=== PATIENT | female | born 1940 | race Caucasian/White ===

== ENCOUNTER 2018-01-23 08:54 | Day surgery (SDC) | payer MEDICARE, OTHER, SELFPAY ==
[2018-01-23] VITALS (7 sets, daily range): BP systolic 139–153; BP diastolic 61–83; PULSE 56–65; RESP 16–17; TEMP 36.2–37; O2SAT 92–100; BMI 28.8
--- NOTE | 2018-01-23 | IMM_PTH ---
PATIENT: KEE KIMBALL LOC: [facility] – [place] U#:[id number] AGE/SX: 77/F ROOM: RE01/23/[address]: Dr. Darius Jon MD : 1940 BED: DIS: 01/23/2018 SPEC #: [id number] RECD: 01/24/18 11:19 STATUS: NESS REQ #: [id number] ROSMERY: 01/23/18 00:[address]: Darius Jon DEPT: IMMUNOHISTOCHEMISTRY RECD BY: Kelli Caputo ENTERED: 01/24/18 11:23 SP TYPE: IMMUNO OTHR DR: Dr. Burak Payne MD Tissues: Skin of forearm, NOS Procedures: MELAN-A (initial) MELAN-A (add) P40 (add) S-100 (add) PHYSICIAN & INSTITUTION [place] [id number] SPECIMEN INFORMATION: Tissue Source: Right mid forearm, re-excision Clinical Info: Melanoma, right mid forearm Specimen Number: [id number] Blocks 1, 2, 3, 4 CPT code: 20410, 47345 x11 METHODOLOGY: Deparaffinized sections of prefer/formalin-fixed tissue or PAP/DQ stained slides are incubated with monoclonal/polyclonal antibodies/oligonucleotide probes. Localization is made via biotin free immunoperoxidase method. Appropriate controls are performed and reacted as expected. Results on target cell population are indicated in the following table: RESULTS: ANTIBODY / CLONE RESULT Block 1 S-100 (4C4.9) positive Melan A (A103) positive P40 (BC28) negative Block 2 S-100 (4C4.9) positive Melan A (A103) positive P40 (BC28) negative Block 3 S-100 (4C4.9) positive Melan A (A103) positive P40 (BC28) negative Block 4 S-100 (4C4.9) positive Melan A (A103) positive P40 (BC28) negative These tests were developed and their performance characteristics determined by [facility]. They may not have been cleared or approved by the U.S. Food and Drug Administration. The FDA has determined that such clearance or approval is not necessary. 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
--- NOTE | 2018-01-23 | LES_PTH ---
PATIENT: KEE KIMBALL LOC: [facility] [place] U#:[id number] AGE/SX: 77/F ROOM: RE01/23/[address]: Dr. Darius Jon MD : 1940 BED: DIS: 01/23/2018 SPEC #: [id number] RECD: 01/23/18 14:54 STATUS: NESS REQ #: [id number] ROSMERY: 01/23/18 00:[address]: Darius Jon DEPT: SURGICAL PATHOLOGY RECD BY: Jamin Putnam ENTERED: 01/23/18 14:55 SP TYPE: Lesion OTHR DR: Dr. Burak Payne MD Tissues: Skin of forearm, NOS Procedures: Surgery Specimen Level IV HEADER OPERATION: Re-excision, melanoma, mid forearm PRE-OP DIAGNOSIS: Melanoma right mid forearm TISSUE SUBMITTED: Right mid forearm, re-excision melanoma in situ MICROSCOPIC DIAGNOSIS Right mid forearm, re-excision: Residual melanoma in situ. Cicatrix. Solar elastosis. AM:rajeev 01/24/18 COMMENT The melanoma is completely excised in the planes examined. Case is seen in consultation with Dr. Hall of [facility]. Case has been reviewed in consultation with Dr. Knowles who concurs with the above diagnosis. IDC:SJ Immunohistochemistry ([id number]) supports the above diagnosis. MICROSCOPIC DESCRIPTION Slides are reviewed. GROSS DESCRIPTION Received in fixative is one container labeled with the patient's name and designated re-excision right mid forearm lesion. The specimen consists of an ellipse of white-palomo excised skin with attached fibrofatty tissue measuring 6.5 x 1.5 cm and a depth of excision measuring 0.7 cm. A cutaneous surface displays a well-healed scar measuring 4.6 cm in greatest dimension. No cutaneous lesions are identified. The specimen is inked and serially sectioned. No mass lesions are identified. The specimen is serially sectioned and totally submitted in 4 cassettes. AM:rajeev 01/23/18 TC: 0 CPT:76027
--- NOTE | 2018-01-23 09:04 | EKG12_ITS ---
Test Reason : PRE OP Blood Pressure : / mmHG Vent. Rate : 065 BPM Atrial Rate : 065 BPM P-R Int : 176 ms QRS Dur : 140 ms QT Int : 464 ms P-R-T Axes : 025 -73 -30 degrees QTc Int : 482 ms Normal sinus rhythm Right bundle branch block Left anterior fascicular block Bifascicular block Abnormal ECG No previous ECGs available Confirmed by BREANA FERRARI, DONELL ([id number]), international editorial producer ESTRADA OLIVER ([id number]) on 01/28/2018 2:33:47 PM Referred By: Darius Jon Confirmed By:DONELL TOUSSAINT MD
[2018-01-23 09:28] LABS: Hematocrit 39.8 % (37-47); Hemoglobin 13.2 g/dl (12.0-15.0); Mean Corp Hgb Conc 33.2 g/gl (32-36); Mean Corpuscular Hgb 34.5 pg (27.0-32.0); Mean Corpuscular Volume 103.9 fL (81-99); Mean Platelet Vol. 10.1 fl (6.2-12.0); Platelet Count 183 K/mm3 (150-450); RBC Distribution Width SD 49.3 fl (35.1-43.9); Red Blood Count 3.83 M/mm3 (4.2-5.4); White Blood Count 3.7 K/mm3 (4.4-11.0)
[2018-01-23 09:34] LABS: Anion Gap 8 (5-15); BUN 27 mg/dL (7-18); BUN/Creat Ratio 22.1 RATIO (10-20); Calcium,Total 9.3 mg/dL (8.5-10.1); Chloride 106 mmol/L (98-107); Creatinine, Serum 1.22 mg/dL (0.55-1.02); EST Glomerular Filtration Rate 45 mL/min (>60); Est Glom Filt Rate - Afr Amer 55 mL/min (>60); Glucose 148 mg/dL (74-106); Potassium 3.9 mmol/L (3.5-5.1); Scan Indicated on CBC? Y/N YES- FLAGS NOTED; Sodium Level 142 mmol/L (136-145)
[2018-01-23 09:51] LABS: Bedside Glucose 154 mg/dL (70-110)
--- NOTE | 2018-01-23 10:33 | DCINST_ITS ---
Discharge Diet: Light diet - advance as tolerated - if you have questions about your diet instructions, please talk to you doctor. Discharge Activity: May Not Drive - for 1 week or while taking narcotic pain medicine. May shower in (days): 1 Lifting Restrictions: 10 pounds Call your doctor if your incision/area has: Continuous Slow Oozing, Sudden Increased Bleeding, Increased Pain/ Swelling, Increased Redness, Foul Smelling Discharge Call your doctor if you observe: Fever of 101 or Higher Suture Line Care: Avoid Pulling/Pushing, Avoid Pinching/Bending Additional Dressing/Incision Instructions:: Please elevate your right arm for comfort. Office appointment tomorrow for wound check. Allergies/Adverse Reactions: Allergies atropine [From ] Allergy (Unknown, Verified 01/22/18 09:24) Unknown brimonidine [From Alphagan P] Allergy (Unknown, Verified 01/22/18 09:24) Unknown codeine Allergy (Unknown, Verified 01/22/18 09:24) Unknown hyoscyamine [From ] Allergy (Unknown, Verified 01/22/18 09:24) Unknown phenobarbital [From ] Allergy (Unknown, Verified 01/22/18 09:24) Unknown scopolamine [From ] Allergy (Unknown, Verified 01/22/18 09:24) Unknown timolol Allergy (Unknown, Verified 01/22/18 09:24) Unknown Medications to take at Discharge bimatoprost 0.01 % eye drops 1 drp OPHTHALMIC QPM 12/21/17 dorzolamide 2 % eye drops 1 drp OPHTHALMIC BID 12/21/17 fenofibrate nanocrystallized 145 mg tablet 145 mg PO DAILY 12/21/17 glyburide 5 mg tablet 5 mg PO DAILY 12/21/17 metformin 500 mg tablet 500 mg PO BID 12/21/17 metoprolol tartrate 50 mg tablet 50 mg PO BID 12/21/17 multivitamin tablet 1 tab PO DAILY 12/21/17 omeprazole magnesium 20 mg tablet,delayed release 20 mg PO DAILY 12/21/17 oxymetazoline 0.05 % nasal spray 1 spray INTRANASAL DAILY PRN 12/21/17 valsartan 160 mg-hydrochlorothiazide 12.5 mg tablet 1 tab PO DAILY 12/21/17 vitamin [id number] B1 100 mg-1 mg/mL intramuscular solution 1 ml IM QMONTH 12/21/17 zolpidem 5 mg tablet 5 mg PO QHS PRN 12/21/17 Magnesium Hydroxide [Milk Of Magnesia] 30 ml PO QHS 01/22/18 Primary Care Physician: Burak Payne [Primary Care Provider] - Test Results: Test results from this visit will be discussed in further detail at your follow- up appointment, if applicable. Please Follow Up With: Darius Jon MD - [phone] When: Call for appt. With Ana Cristina Ruth for wound check tomorrow
[2018-01-23] MEDS: Bupivacaine Mpf 0.5% 30 ML VIAL (10:55)
--- NOTE | 2018-01-23 11:43 | PCM.OPRPT ---
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 77-year-old female was taken the operating room. She was placed supine on the table. She underwent monitored anesthesia care. The right forearm was sterilely prepped and draped with ChloraPrep. 1% lidocaine mixed 50-50 with 0.5% Marcaine was used as a local anesthetic. Throughout the procedure total 38 cc was used. A 6.5 x 1.5 longitudinal elliptical excision was used to completely re-excise her previous scar. Dissection was performed directly down through the subcutaneous tissue to the fascia. Aggressive fascial flaps are raised. The skin edges were then approximated meticulously by using santos sutures of 3-0 nylon and then placing a combination of interrupted 2-0 chromic in interrupted 3-0 chromic subdermal stitches. The skin edges were slowly approximated using simple sutures of 4-0 nylon. Having accomplished that Telfa 4 x 4 Kerlix roll and Jesus wrap applied. Sponge and instrument and needle counts were reported the surgeon be correct. Blood loss was 150 cc. She tolerated the procedure well. She was taken to the recovery area in satisfactory condition without apparent complication. The specimen is submitted in formalin for analysis. Specimens include reexcision skin lesion. Drains none. Blood loss 150 cc Darius Jon M.D., F.A.C.S. Type of Anesthesia:: Local MAC Anesthesiologist: Sanket Osborn
== END 2018-01-23 14:25 | disposition home or self-care (01) ==
LOC: SDC 08:54 → AC 08:56
PROVIDERS: Family Provider Family Medicine; PCP Family Medicine; Referring Provider Surgery; Visit Provider Surgery
PROC: (CPT 11606; principal; 2018-01-23 10:45)
DX: D03.61 Melanoma in situ of right upper limb, including shoulder (principal); E78.00 Pure hypercholesterolemia, unspecified; E11.9 Type 2 diabetes mellitus without complications; I10 Essential (primary) hypertension; D86.9 Sarcoidosis, unspecified; Z86.718 Personal history of other venous thrombosis and embolism; L90.5 Scar conditions and fibrosis of skin; L57.8 Other skin changes due to chronic exposure to nonionizing radiation
CPT/HCPCS: 00400; 11606; 80048; 82962; 85027; 88305; 88341; 88342; 93005; J7120; J2405

== ENCOUNTER → 2018-12-27 12:42 | Outpatient (CLI) | payer MEDICARE, SELFPAY ==
--- NOTE | 2018-12-27 12:48 | ECHOD_ITS ---
Reason For Study: LIM Procedure This was a 2D Doppler, Color Flow transthoracic echocardiogram. The study was technically difficult. Exam performed in department. Left Ventricle Normal LV size. Sigmoid septum. Left ventricular systolic function is normal. The estimated ejection fraction is 65 %. Diastolic function is indeterminate. No regional wall motion abnormalities noted. Right Ventricle Normal RV size. Normal systolic function. Atria The left atrium is moderately enlarged. Normal right atrium. No doppler evidence for ASD. Mitral Valve There is no mitral annular calcification. Moderate focal mitral valve calcification of the anterior leaflet. Moderate (2+) mitral valve insufficiency. Tricuspid Valve Normal tricuspid valve. Moderate (2+) tricuspid valve insufficiency. Right ventricular systolic pressure estimated to be 32 mmHg. 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 Mild (1+) eccentric aortic valve insufficiency. Pulmonic Valve The pulmonic valve is not well visualized. Great Vessels Mildly dilated aortic root. Pericardium/Pleural No pericardial effusion. MMode/2D Measurements & Calculations LVIDd: 5.0 cm IVSd: 1.4 cm LVOT diam: 2.0 cm LVIDs: 3.2 cm LVPWd: 1.2 cm LVOT area: 3.3 cm2 RVDd: 3.7 cm FS: 36.5 % Ao root diam: 4.3 cm LAV(MOD-bp): 55.0 ml LVAd ap4: 20.5 cm2 LAV(MOD-bp) Indexed: 32.5 ml/m2 EDV(MOD-sp4): 55.7 ml LAV(MOD-sp2): 72.5 ml EDV(sp4-el): 57.9 ml LAV(MOD-sp4): 41.3 ml LVAs ap4: 11.1 cm2 ESV(MOD-sp4): 20.4 ml ESV(sp4-el): 19.7 ml EF(MOD-sp4): 63.3 % EF(sp4-el): 65.9 % SV(MOD-sp4): 35.3 ml SV(sp4-el): 38.1 ml LA A4 area: 17.5 cm2 LA dimension(2D): 3.9 cm RA A4 area: 14.9 cm2 Doppler Measurements & Calculations MV E max ronald: 80.3 cm/sec Lat Peak E' Ronald: 7.5 cm/sec Med Peak E' Ronald: 4.7 cm/sec MV A max ronald: 83.0 cm/sec E/E' lat: 10.7 E/E' med: 17.1 MV E/A: 0.97 Ao V2 max: 319.9 cm/sec LV V1 max: 120.1 cm/sec SV(LVOT): 90.1 ml Ao max P.9 mmHg LV V1 max P.8 mmHg Ao V2 mean: 233.8 cm/sec LV V1 mean P.5 mmHg Ao mean P.0 mmHg LV V1 mean: 89.5 cm/sec Ao V2 VTI: 73.1 cm LV V1 VTI: 27.4 cm VEGA(I,D): 1.2 cm2 VEGA(V,D): 1.2 cm2 PA V2 max: 63.6 cm/sec TR max ronald: 270.4 cm/sec TR max P.3 mmHg Interpretation Summary The study was technically difficult. Left ventricular systolic function is normal. The estimated ejection fraction is 65 %. Sigmoid septum. The left atrium is moderately enlarged. Moderate focal mitral valve calcification of the anterior leaflet. Moderate (2+) mitral valve insufficiency. Moderate (2+) tricuspid valve insufficiency. 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 Mild (1+) eccentric aortic valve insufficiency. Mildly dilated aortic root. Right ventricular systolic pressure estimated to be 32 mmHg. Diastolic function is indeterminate. Ordering Physician: Burak Payne; Indra Li Referring Physician: Burak Payne Performed By: Elizabeth Viera, CORWIN, RVT
== END ==
PROVIDERS: Family Provider Family Medicine; PCP Family Medicine; Referring Provider Family Medicine; Visit Provider Family Medicine
DX: R06.09 Other forms of dyspnea (principal)
CPT/HCPCS: 93306

== ENCOUNTER → 2019-01-20 14:50 | Outpatient (CLI) | payer MEDICARE, SELFPAY ==
--- NOTE | 2019-01-20 14:54 | CT_ITS ---
STUDY: CTA CHEST REASON FOR EXAM: Female, 78 years old. History of aneurysm and valve replacement surgery. RADIATION DOSAGE (If Supplied By Facility): CTDIvol = ( 16.55 ) mGy, DLP = ( 391.56 ) mGycm TECHNIQUE: The examination was performed with the intravenous administration of IV Isovue 370 100. Post-processing of the angiographic images was performed, with multiplanar reformation and 3D reconstruction. Individualized dose optimization techniques were used for this CT. COMPARISON: None. FINDINGS: Normal enhancement of the main pulmonary artery and right and left pulmonary arteries. Normal enhancement of the bilateral peripheral pulmonary arteries. There is no demonstrated pulmonary embolism. There is atherosclerotic calcification of the aortic arch with tortuosity. There is distention of the ascending aorta reaching a maximum diameter of 4.3 x 4.1 cm compatible with mild aneurysmal dilatation. There is no demonstrated aortic dissection. Heart is enlarged with postoperative changes at the level of the aortic root is noted. Small scattered lymph nodes demonstrated otherwise normal mediastinum. Normal hilar regions. Normal visualized trachea and bronchi. The lungs are well expanded. There is minimal bilateral basilar atelectasis, remainder of the pulmonary parenchyma is clear. Normal pleura. Normal chest wall structures. Midline sternotomy wires noted. Degenerative disease of the spine along with osteopenia. Otherwise normal osseous structures. Normal visualized upper abdomen. CT/CTA Chest W/WO Contrast IMPRESSION: Mild aneurysmal dilatation of the ascending aorta reaching 4.3 cm in maximum diameter. Otherwise negative CTA chest examination, without a demonstrated pulmonary embolism or arterial dissection. Minimal bilateral basilar atelectasis, otherwise no acute cardiopulmonary process seen. Cardiomegaly. Electronically Signed: Renée Urbano MD at 5:11 EST , Service support ,
[2019-01-20 15:06] LABS: CREATININE FINGERSTICK 1.3 mg/dL (0.55-1.02)
== END ==
PROVIDERS: Family Provider Family Medicine; PCP Family Medicine; Referring Provider Family Medicine; Visit Provider Family Medicine
DX: I71.2 Thoracic aortic aneurysm, without rupture (principal)
CPT/HCPCS: 71275; Q9967

== ENCOUNTER → 2020-04-15 12:47 | Outpatient (CLI) | payer MEDICARE, SELFPAY ==
--- NOTE | 2020-04-15 12:50 | CDU_ITS ---
Reason For Study: Retinal ischemia Rt. Velocities/BP Lt. Velocities/BP Prox CCA 57.8/9.5 cm/sec. Prox CCA 49.1 cm/sec. Mid CCA 49.9/9.5 cm/sec. Mid CCA 45.6/8.1 cm/sec. Dist CCA 40.8/9.5 cm/sec. Dist CCA 40.4/4.6 cm/sec. Prox ICA 38.8/8 cm/sec. Prox ICA 43/5.5 cm/sec. Mid ICA 77.3/16.8 cm/sec. Mid ICA 64.8/14.2 cm/sec. Dist ICA 59.7/17.9 cm/sec. Dist ICA 55.2/13.3 cm/sec. Rt. ICA/CCA = 1.5. Lt. ICA/CCA = 1.4. Prox ECA 49.8 cm/sec. Prox ECA 50.9 cm/sec. Rt. Vert. 30.8/6.4 cm/sec. Lt. Vert. 39.4/9.5 cm/sec. Right Extracranial There is intimal thickening but no significant atherosclerotic plaque noted in the right common carotid artery. There is intimal thickening but no significant atherosclerotic plaque noted in the right internal carotid artery. There is intimal thickening but no significant atherosclerotic plaque noted in the right external carotid artery. Antegrade flow is noted in the right vertebral artery. Left Extracranial There is homogeneous, smooth atherosclerotic plaque noted in the left common carotid artery. There is intimal thickening but no significant atherosclerotic plaque noted in the left internal carotid artery. There is intimal thickening but no significant atherosclerotic plaque noted in the left external carotid artery. Antegrade flow is noted in the left vertebral artery. Procedure Carotid Duplex [id number]. This is a Carotid Duplex examination using B-mode, color flow and specral Doppler. Exam performed in department. Interpretation Summary No significant atherosclerotic plaque or stenosis noted in the internal carotid arteries bilaterally. Flow within the vertebral arteries is antegrade bilaterally. Ordering Physician: Booker Prieto Referring Physician: Burak Payne MD Performed By: Sanam Hall RVT
== END ==
PROVIDERS: PCP Family Medicine; Referring Provider Ophthalmology; Visit Provider Ophthalmology
DX: H35.82 Retinal ischemia (principal)
CPT/HCPCS: 93880

== ENCOUNTER → 2021-12-14 | Outpatient (CLI) | payer MEDICARE, SELFPAY ==
--- NOTE | 2021-12-14 13:22 | ECHOD_ITS ---
Reason For Study: SOB Procedure This was a 2D Doppler, Color Flow transthoracic echocardiogram. The study was technically difficult. Exam performed in department. Left Ventricle Normal LV size. Mild concentric left ventricular hypertrophy. Left ventricular systolic function is normal. The estimated ejection fraction is 65 %. No regional wall motion abnormalities noted. Right Ventricle Normal RV size. Normal systolic function. Atria Normal left atrium. Normal right atrium. Mitral Valve Mild focal mitral valve calcification of the anterior leaflet. Mild-Moderate (1-2+) eccentric mitral valve insufficiency. Tricuspid Valve Normal tricuspid valve. Mild tricuspid valve insufficiency. Pulmonary artery systolic pressure is 33 mmHg. Aortic Valve Peak aortic valve gradient 54 mmHg. Mean aortic valve gradient 36 mmHg. Moderate to severe aortic stenosis. Bioprosthetic aortic valve. Great Vessels Mild to moderately dilated aortic root. The pulmonary artery is normal size. Normal inferior vena cava. Pericardium/Pleural No pericardial effusion. MMode/2D Measurements & Calculations LVIDd: 4.9 cm IVSd: 1.4 cm LVOT diam: 2.0 cm LVIDs: 3.3 cm LVPWd: 1.2 cm LVOT area: 3.0 cm2 RVDd: 3.1 cm FS: 31.6 % Ao root diam: 3.7 cm LAV(MOD-bp): 52.8 ml LVAd ap4: 30.4 cm2 LAV(MOD-bp) Indexed: 31.9 ml/m2 LVLd ap4: 7.6 cm LAV(MOD-sp2): 51.4 ml EDV(MOD-sp4): 98.8 ml LAV(MOD-sp4): 49.7 ml EDV(sp4-el): 103.7 ml LVAs ap4: 18.2 cm2 LVLs ap4: 6.7 cm ESV(MOD-sp4): 43.3 ml ESV(sp4-el): 41.7 ml EF(MOD-sp4): 56.2 % EF(sp4-el): 59.8 % SV(MOD-sp4): 55.5 ml SV(sp4-el): 62.0 ml LA A4 area: 19.7 cm2 LA dimension(2D): 4.0 cm RA A4 area: 17.3 cm2 Time Measurements MV dec time: 0.20 sec Doppler Measurements & Calculations MV E max ronald: 82.0 cm/sec Lat Peak E' Ronald: 8.0 cm/sec Med Peak E' Ronald: 5.6 cm/sec MV A max ronald: 91.5 cm/sec E/E' lat: 10.3 E/E' med: 14.5 MV E/A: 0.90 Ao V2 max: 368.3 cm/sec LV V1 max: 84.7 cm/sec MV dec slope: 404.8 cm/sec2 Ao max P.3 mmHg LV V1 max P.9 mmHg Ao V2 mean: 287.2 cm/sec LV V1 mean P.4 mmHg Ao mean P.7 mmHg LV V1 mean: 55.1 cm/sec Ao V2 VTI: 85.4 cm LV V1 VTI: 19.9 cm VEGA(I,D): 0.70 cm2 VEGA(V,D): 0.69 cm2 SV(LVOT): 59.8 ml PA V2 max: 69.3 cm/sec TR max ronald: 273.7 cm/sec TR max P.0 mmHg ECHO/Echo Complete Interpretation Summary Normal LV size. Left ventricular systolic function is normal. The estimated ejection fraction is 65 %. Mean aortic valve gradient 36 mmHg. Moderate to severe aortic stenosis Bioprosthetic aortic valve. Mild to moderately dilated aortic root. Ordering Physician: DAVIAN RUBIO Referring Physician: BRADLEY CARRINGTON Performed By: Kadie Holland RDCS
== END | disposition home or self-care (01) ==
LOC: CVS 13:21
PROVIDERS: PCP Family Medicine
DX: R06.02 Shortness of breath (principal); R06.00 Dyspnea, unspecified
CPT/HCPCS: 93306